=== PATIENT | female | born 1975 | race Caucasian/White ===

== ENCOUNTER → 2017-08-18 17:23 | Outpatient (CLI) | payer MEDICARE, MEDICAID, SELFPAY | PROVIDERS: Visit Provider Obstetrics & Gynecology | DX: N39.0 Urinary tract infection, site not specified (principal) | CPT/HCPCS: 87077; 87086; 87088; 87186 ==

== ENCOUNTER 2017-10-01 13:23 | Observation (INO) | payer MEDICARE, MEDICAID, SELFPAY ==
[2017-09-28 17:20] LABS: Hematocrit 39.8 % (37-47); Hemoglobin 12.8 g/dl (12.0-15.0); Mean Corp Hgb Conc 32.2 g/gl (32-36); Mean Corpuscular Hgb 28.6 pg (27.0-32.0); Mean Platelet Vol. 10.9 fl (6.2-12.0); Platelet Count 187 K/mm3 (150-450); RBC Distribution Width CV 13.7 % (11.6-14.6); RBC Distribution Width SD 44.7 fl (35.1-43.9); Red Blood Count 4.47 M/mm3 (4.2-5.4); White Blood Count 6.9 K/mm3 (4.4-11.0)
[2017-09-28 17:22] LABS: Scan Indicated on CBC? Y/N NO
[2017-09-28 17:31] LABS: Partial Thromboplast Time 28.6 Seconds (24.1-36.2); Prothrombin Time (Protime)PT. 13.6 SECONDS (11.7-14.9)
[2017-09-28 17:41] LABS: Anion Gap 6 (5-15); BUN 7 mg/dL (7-18); BUN/Creat Ratio 9.8 RATIO (10-20); Calcium,Total 8.9 mg/dL (8.5-10.1); Chloride 107 mmol/L (98-107); Creatinine, Serum 0.71 mg/dL (0.55-1.02); EST Glomerular Filtration Rate 96 mL/min (>60); Est Glom Filt Rate - Afr Amer 116 mL/min (>60); Glucose 80 mg/dL (74-106); Potassium 3.7 mmol/L (3.5-5.1); Sodium Level 140 mmol/L (136-145)
[2017-09-28 18:10] LABS: Hemoglobin A1c 4.7 % (4.2-6.3)
[2017-10-01] VITALS (50 sets, daily range): BP systolic 62–111; BP diastolic 28–80; PULSE 60–84; RESP 10–16; TEMP 35.5–37.1; O2SAT 93–100; BMI 19.0
--- NOTE | 2017-10-01 | HYST_PTH ---
PATIENT: CASTILLO BELLE LOC: MS3 U#:[id number] AGE/SX: 42/F ROOM: [facility] [place] RE10/01/[address]: Dr. Charline Pimentel MD : 1975 BED: 1 DIS: 10/02/2017 SPEC #: [id number] RECD: 10/01/17 12:04 STATUS: LISSA RECarline #: [id number] JUAN ALBERTO: 10/01/17 00:[address]: Charline Murphy DEPT: SURGICAL PATHOLOGY RECD BY: Mario So ENTERED: 10/01/17 12:04 SP TYPE: HYSTERECT OTHR DR: Dr. Bull Salamanca MD Tissues: Uterus, NOS Procedures: Special Stain Group II Surgery Specimen Level V Amyloid Stain (control) HEADER OPERATION: Hysterectomy, vaginal, salpingectomy PRE-OP DIAGNOSIS: Pelvic inflammatory disease and right lower quadrant tenderness TISSUE SUBMITTED: Uterus, bilateral fallopian tubes and cervix MICROSCOPIC DIAGNOSIS Uterus, hysterectomy: Cervix ? nabothian cysts, squamous metaplasia and mild chronic inflammation Endometrium ? secretory endometrium. Myometrium ? Focal superficial adenomyosis and benign hyalin deposits, favor reactive. Right and left fallopian tubes ? no pathologic change. AM:alexei 10/02/17 COMMENT [place] red stain supports the above diagnosis. Clinical correlation is suggested. MICROSCOPIC DESCRIPTION Slides are reviewed. GROSS DESCRIPTION Received in fixative is one container labeled with the patient's name and designated uterus. The specimen consists of a uterus with attached left fallopian tube and detached right fallopian tube. The uterus with cervix measures 8.6 x 5.5 x 5 cm and weighs 108.6 gm. The ectocervix is unremarkable. The cervical os is oval in contour. The endocervical canal measures 3 cm in length and is grossly unremarkable. The triangular endometrial cavity measures 4.2 x 3 cm. The velvety, glistening, light foreman endometrium measures up to 0.2 cm in thickness. Portions of an Essure device are present attached to the uterus and in the distal portions of the fallopian tubes. The right and left fallopian tube are similar in appearance with an average length of 6 cm and average diameter of 0.5 cm. Serial sections of both fallopian tubes do not reveal mass lesions. The myometrium measures 2.2 cm in average thickness and is free of mass lesions. Hearing Dog Trainer sections are submitted as follows: 1 - anterior cervix, 2 - posterior cervix, 3 & 4 - anterior uterine wall, 5 & 6 - posterior uterine wall, 7 ? right fallopian tube, 8 ? left fallopian tube. / AM:alexei 10/01/17 TC:5 CPT: 78189, 29243
[2017-10-01 06:23] LABS: Internal QC Validated? YES +Cl - CLEAR BKGD; Pregnancy, Urine Negative Negative
--- NOTE | 2017-10-01 07:30 | OV_PTH ---
PATIENT: CASTILLO BELLE LOC: MS3 U#:[id number] AGE/SX: 42/F ROOM: [facility] [place] RE10/01/[address]: Dr. Charline Pimentel MD : 1975 BED: 1 DIS: 10/02/2017 SPEC #: [id number] RECD: 10/02/17 09:49 STATUS: LISSA SABA #: [id number] JUAN ALBERTO: 10/01/17 07:[address]: Charline Murphy DEPT: SURGICAL PATHOLOGY RECD BY: Emery Porras ENTERED: 10/02/17 10:37 SP TYPE: OVARY OTHR DR: Dr. Bull Salamanca MD Tissues: Left ovary Procedures: Surgery Specimen Level IV HEADER OPERATION: Exploratory laparoscopy PRE-OP DIAGNOSIS: Chronic pelvic pain and failed Essure TISSUE SUBMITTED: Left ovary MICROSCOPIC DIAGNOSIS Left ovary, oophorectomy: Ovary with physiologic follicular cysts, no pathologic diagnosis. SJ:alexei 10/05/17 MICROSCOPIC DESCRIPTION Slides are reviewed. GROSS DESCRIPTION Received in fixative is one container labeled with the patient's name and designated left ovary. The specimen consists of a smooth, glistening pink-foreman ovary measuring 3.6 x 2 x 1 cm. Serial sections do not reveal mass lesions. Also present free in the container is an irregular fragment of light to dark foreman soft tissue measuring 1.3 x 0.5 x 0.2 cm. This detached fragment of soft tissue is submitted in cassette 1. The ovary section is totally submitted in cassettes 2-4. / AM:alexei 10/02/17 TC:4 CPT: 65358
[2017-10-01] MEDS: Ketorolac 30 MG/ML Syringe IV (09:15)
--- NOTE | 2017-10-01 09:17 | OP.PN_ITS ---
Immediate Post-Op Note Date of Procedure: 10/01/17 Primary Surgeon/Physician: Charline Campuzano, calender roll operator: Jasmin Causey calender roll operator: Patricia Pollock Pre-Operative Diagnosis: Chronic pelvic pain related to ESSURE device, failed ESSURE Post-Operative Diagnosis: Pelvic pain related ESSURE device, failed ESSURE Surgery/Procedure Performed:: Total vaginal hysterectomy, bilateral salpingectomy Description of Surgical Findings:: Essure coils within the uterine corpus. Tubes, ovaries and uterus normal appearing Estimated Blood Loss: 150 mL Specimen's removed: Uterus, cervix and bilateral tubes Type of Anesthesia:: General ASA Class: ASA1 Normal Healthy Patient - Admit VTE Documentation VTE Present on Admission: No VTE Mechan Device Prophylaxis: SCD's VTE Pharm Prophylaxis ordered?: No
--- NOTE | 2017-10-01 09:18 | PCM.OPRPT ---
Problem List (1) Chronic pelvic pain in female Status: Acute (2) Foreign body of uterus Status: Acute Qualifiers: Encounter type: subsequent encounter Qualified Code(s): T19.3XXD - Foreign body in uterus, subsequent encounter Report of Operation Date of Procedure: 10/01/17 Pre-Operative Diagnosis: Chronic pelvic pain related to ESSURE device, failed ESSURE Post-Operative Diagnosis: Pelvic pain related ESSURE device, failed ESSURE Surgery/Procedure Performed:: Total vaginal hysterectomy, bilateral salpingectomy Description of Surgical Findings:: Essure coils within the uterine corpus. Tubes, ovaries and uterus normal appearing sheet catcher: Jasmin Causey sheet catcher: Patricia Pollock Type of Anesthesia:: General Anesthesiologist: Matthew Zamora Specimen's removed: Uterus, cervix and bilateral tubes Estimated Blood Loss (mL): 150 mL Description of Procedure: Indications: Ms. Ferrer is a 42-year-old multigravida approximately 12 weeks following despite Essure placement in 2007. She indicated persistent lower abdominal pain with dyspareunia since placement of the coils. Following counseling she opted to proceed with total vaginal hysterectomy and bilateral salpingectomy. Risks, benefits, indications and alternatives were reviewed. Eater: The patient was taken to the operating room and signed and was performed. She is placed in the dorsal supine position and induced under general anesthesia and intubated. She was then repositioned to dorsolithotomy and examination under anesthesia was performed. The perineum and vagina were prepped and draped in sterile fashion. The Fair catheter was placed into the bladder. A weighted speculum placed into the vagina and the cervix grasped using single-tooth tenaculum. A circumferential incision was made using a scalpel along the cervix. The vesicle uterine space was developed using sharp dissection and the anterior cul-de-sac peritoneum identified and sharply entered. A curved Viri was placed into the space to further retract the bladder. In similar fashion the rectovaginal septum was dissected level of the uterosacral ligament to identify the posterior cul-de-sac peritoneum. This was entered sharply and a long weighted speculum was placed into the posterior cul-de-sac. The sacral ligaments were serially Chaim clamped, cut and suture ligated using 0 Vicryl suture. The cardinal ligaments, uterine vessels, uterine ovarian ligament also were subsequently clamped, cut and suture ligated. The right tube was identified to the level of the fimbria and the mesosalpinx clamped and transected. The pedicle was suture-ligated using 0 Vicryl. In similar fashion the left salpingectomy was performed. There is bleeding from the left pelvic peritoneum that was controlled using 0 Vicryl running lock suture to reapproximate the peritoneum step.. The modified Ragland culdoplasty was performed incorporating the uterosacral ligaments with the posterior and anterior peritoneum using 2-0 Prolene. Sohail was placed in the space. The vaginal cuff was reapproximated using 0 Vicryl figure of 8 sutures. There is excellent hemostasis. The patient was then placed into the dorsal supine position, awakened, extubated and transferred to the recovery room without complication. Sponge, instrument and needle counts were correct ?2. Patient tolerated procedure well. - Complications None - Admit VTE Documentation VTE Present on Admission: No VTE Mechan Device Prophylaxis: SCD's VTE Pharm Prophylaxis ordered?: No
--- NOTE | 2017-10-01 09:25 | OP.PCM_ITS ---
Problem List (1) Chronic pelvic pain in female Status: Acute (2) Foreign body of uterus Status: Acute Qualifiers: Encounter type: subsequent encounter Qualified Code(s): T19.3XXD - Foreign body in uterus, subsequent encounter Report of Operation Date of Procedure: 10/01/17 Pre-Operative Diagnosis: Chronic pelvic pain related to ESSURE device, failed ESSURE Post-Operative Diagnosis: Pelvic pain related ESSURE device, failed ESSURE Surgery/Procedure Performed:: Total vaginal hysterectomy, bilateral salpingectomy Description of Surgical Findings:: Essure coils within the uterine corpus. Tubes, ovaries and uterus normal appearing intake coordinator: Jasmin Causey intake coordinator: Patricia Pollock Type of Anesthesia:: General Anesthesiologist: Matthew Zamora Specimen's removed: Uterus, cervix and bilateral tubes Estimated Blood Loss (mL): 150 mL Description of Procedure: Indications: Ms. Ferrer is a 42-year-old multigravida approximately 12 weeks following despite Essure placement in 2007. She indicated persistent lower abdominal pain with dyspareunia since placement of the coils. Following counseling she opted to proceed with total vaginal hysterectomy and bilateral salpingectomy. Risks, benefits, indications and alternatives were reviewed. Eater: The patient was taken to the operating room and signed and was performed. She is placed in the dorsal supine position and induced under general anesthesia and intubated. She was then repositioned to dorsolithotomy and examination under anesthesia was performed. The perineum and vagina were prepped and draped in sterile fashion. The Fair catheter was placed into the bladder. A weighted speculum placed into the vagina and the cervix grasped using single-tooth tenaculum. A circumferential incision was made using a scalpel along the cervix. The vesicle uterine space was developed using sharp dissection and the anterior cul-de-sac peritoneum identified and sharply entered. A curved Viri was placed into the space to further retract the bladder. In similar fashion the rectovaginal septum was dissected level of the uterosacral ligament to identify the posterior cul-de-sac peritoneum. This was entered sharply and a long weighted speculum was placed into the posterior cul- de-sac. The sacral ligaments were serially Chaim clamped, cut and suture ligated using 0 Vicryl suture. The cardinal ligaments, uterine vessels, uterine ovarian ligament also were subsequently clamped, cut and suture ligated. The right tube was identified to the level of the fimbria and the mesosalpinx clamped and transected. The pedicle was suture-ligated using 0 Vicryl. In similar fashion the left salpingectomy was performed. There is bleeding from the left pelvic peritoneum that was controlled using 0 Vicryl running lock suture to reapproximate the peritoneum step.. The modified Ragland culdoplasty was performed incorporating the uterosacral ligaments with the posterior and anterior peritoneum using 2-0 Prolene. Sohail was placed in the space. The vaginal cuff was reapproximated using 0 Vicryl figure of 8 sutures. There is excellent hemostasis. The patient was then placed into the dorsal supine position, awakened, extubated and transferred to the recovery room without complication. Sponge, instrument and needle counts were correct ?2. Patient tolerated procedure well. - Complications None - Admit VTE Documentation VTE Present on Admission: No VTE Mechan Device Prophylaxis: SCD's VTE Pharm Prophylaxis ordered?: No
[2017-10-01] MEDS: Lactated Ringers 500 ML 999 ML IV ×2 (11:10→12:15)
--- NOTE | 2017-10-01 12:50 | PCM.PN.BLA ---
Progress Note Notified by RN patient with low BPs. I arrived to floor to evaluate the patient at approximately 1236h. Patient reports feeling lightheaded, cold and weak. Denies shortness of breath or palpitations. BPs 80s-90s/40s-50s at bedside. HR 90s bpm, R 12, O2 sat 97% on RA. RRR, CTAB, abdomen soft with appropriate post-operative tenderness, no distension, no rebound or guarding. Perineum inspected with scant blood. Nurse indicated this pad was present for 45 minutes and no expulsion of blood occurred on abdominal pressure. Awaiting CBC draw. I indicated to patient and her my concern for eric-operative bleed. I recommended CT a/P with IV contrast to r/o acute bleed given difficulty in drawing CBC, NPO and transfer to ICU for continuous vitals monitoring. Patient and spouse reported understanding. They were given opportunity to ask questions and questions answered to their satisfaction.
--- NOTE | 2017-10-01 12:54 | PN_ITS ---
Progress Note Notified by RN patient with low BPs. I arrived to floor to evaluate the patient at approximately 1236h. Patient reports feeling lightheaded, cold and weak. Denies shortness of breath or palpitations. BPs 80s-90s/40s-50s at bedside. HR 90s bpm, R 12, O2 sat 97% on RA. RRR, CTAB, abdomen soft with appropriate post- operative tenderness, no distension, no rebound or guarding. Perineum inspected with scant blood. Nurse indicated this pad was present for 45 minutes and no expulsion of blood occurred on abdominal pressure. Awaiting CBC draw. I indicated to patient and her my concern for eric-operative bleed. I recommended CT a/P with IV contrast to r/o acute bleed given difficulty in drawing CBC, NPO and transfer to ICU for continuous vitals monitoring. Patient and spouse reported understanding. They were given opportunity to ask questions and questions answered to their satisfaction.
--- NOTE | 2017-10-01 12:54 | CT_ITS ---
STUDY: CT ABDOMEN AND PELVIS WITH CONTRAST REASON FOR EXAM: Female, 42 years old. Rectal bleeding and retroperitoneal bleed. Status post DANNIELLE/BSO today. RADIATION DOSAGE (If Supplied By Facility): CTDIvol = ( 12.44 ) mGy, DLP = ( 599.38 ) mGycm TECHNIQUE: Transaxial images were obtained from the dome of the diaphragm to the symphysis pubis without oral contrast. 100ml ml of Isovue 300 contrast was administered. Sagittal and coronal images were reconstructed. Individualized dose optimization techniques were used for this CT. COMPARISON: None. FINDINGS: The visualized lung bases are unremarkable. The visualized portions of the heart are within normal limits. Normal liver. Normal gallbladder and extrahepatic biliary system. Normal spleen. Normal pancreas. There is a moderate to large quantity of mildly hyperdense free fluid throughout the abdomen and pelvis. Hounsfield attenuation units average from 24-28. A few scattered foci of free air are seen in the operative bed seen best on sequence 2 image numbers 100 through 96. The fluid within the pelvic surgical bed site demonstrates amorphous high attenuation measuring approximately 63 Hounsfield units (best seen best on sequence 2, image 99.) Multiple linear and curvilinear high density foci are seen centrally in the perioperative site seen best on sequence 2, image 98. These findings argue for active extravasation. Normal bilateral adrenal glands. Normal right kidney. Normal left kidney. Normal visualized stomach. Normal small intestine. Normal colon. The appendix is visualized and appears normal. Normal abdominal aorta. Normal inferior vena cava. Normal retroperitoneum. There is a Fair catheter and balloon within the decompressed urinary bladder which otherwise appears grossly unremarkable. Normal abdominal wall. Normal osseous structures. CT/Abdomen/Pelvis W IV Cont ONLY IMPRESSION: Findings consistent with active extravasation at the operative site within the pelvis with hemoperitoneum. N.B. : The above information has been verbally conveyed by Aneudy Fields MD to , Referring Physician, on 10/01/2017 15:05:42 (ET). Electronically Signed: Aneudy Fields MD at 15:05 EDT , Service support , N.B. : The above information has been verbally conveyed by Aneudy Fields MD to , Referring Physician, on 10/01/2017 15:05:42 (ET).
[2017-10-01] MEDS: Dextrose 5%-Lactated Ringers 1,000 ML 200 ML IV (13:04)
--- NOTE | 2017-10-01 13:07 | NURSING ---
nursing and drying supervisor cooking casing aware of pt status and md wants pt to go to ct prior to going to icu. states she will get a hold of ICU nurse and have her accompany pt to ct and then to icu
[2017-10-01 13:16] LABS: Hematocrit 30.8 % (37-47); Hemoglobin 10.1 g/dl (12.0-15.0); Mean Corp Hgb Conc 32.8 g/gl (32-36); Mean Corpuscular Hgb 29.5 pg (27.0-32.0); Mean Corpuscular Volume 90.1 fL (81-99); RBC Distribution Width CV 13.6 % (11.6-14.6); RBC Distribution Width SD 43.4 fl (35.1-43.9); Red Blood Count 3.42 M/mm3 (4.2-5.4); White Blood Count 12.3 K/mm3 (4.4-11.0)
[2017-10-01 13:17] LABS: Absolute Lymphocyte Count 0.67 X10^3/ul (0.83-4.51); Absolute Neutrophil Count 11.4 X10^3/uL (2.0-7.7); Lymphocyte # 0.67 X10^3/ul (4.0); Lymphocyte % 5.4 % (19-41); Mean Platelet Vol. 10.9 fl (6.2-12.0); Monocyte# 0.21 X10^3/uL; Monocyte% 1.7 % (0-10); Neutrophil # 11.41 X10^3/uL (2.7-7.7); Neutrophil % 92.7 % (47-70); Platelet Count 152 K/mm3 (150-450)
--- NOTE | 2017-10-01 13:35 | NURSING ---
[address] per monitored bed x2 staff nurses. report to MARA ROSE IN ICU AT BEDSIDE OF CT.
--- NOTE | 2017-10-01 15:44 | NURSING ---
to or per bed per surgery, pt talked with triston per phone, ist unit prbc infusing
[2017-10-01 16:54] LABS: M R Staph aureus DNA By PCR Negative (Negative); Probe Check PASS; Specimen Processing Control PASS
--- NOTE | 2017-10-01 18:00 | PCM.IMDPSTOP ---
Problem List (1) Acute blood loss as cause of postoperative anemia Status: Acute Immediate Post-Op Note Date of Procedure: 10/01/17 Primary Surgeon/Physician: Charline Campuzano, coke burner: Jasmin Causey coke burner: Patricia Plolock Pre-Operative Diagnosis: Perioperative hemorrhage Post-Operative Diagnosis: Perioperative hemorrhage Surgery/Procedure Performed:: Diagnostic laparoscopy, left oophorectomy Description of Surgical Findings:: Bleeding from left adnexal pedicle Estimated Blood Loss: 1500ml Specimen's removed: left ovary Drains: marin 450 ml Type of Anesthesia:: General - Admit VTE Documentation VTE Present on Admission: No VTE Mechan Device Prophylaxis: SCD's
--- NOTE | 2017-10-01 18:10 | OP.PN_ITS ---
Problem List (1) Acute blood loss as cause of postoperative anemia Status: Acute Immediate Post-Op Note Date of Procedure: 10/01/17 Primary Surgeon/Physician: Charline Campuzano, it administrator: Jasmin Causey it administrator: Patricia Pollock Pre-Operative Diagnosis: Perioperative hemorrhage Post-Operative Diagnosis: Perioperative hemorrhage Surgery/Procedure Performed:: Diagnostic laparoscopy, left oophorectomy Description of Surgical Findings:: Bleeding from left adnexal pedicle Estimated Blood Loss: 1500ml Specimen's removed: left ovary Drains: marin 450 ml Type of Anesthesia:: General - Admit VTE Documentation VTE Present on Admission: No VTE Mechan Device Prophylaxis: SCD's
[2017-10-01 19:18] LABS: Absolute Lymphocyte Count 0.67 X10^3/ul (0.83-4.51); Absolute Neutrophil Count 9.2 X10^3/uL (2.0-7.7); Basophil# 0.01 X10^3/uL; Basophil% 0.1 % (0-1); Lymphocyte # 0.67 X10^3/ul (4.0); Lymphocyte % 6.4 % (19-41); Mean Corp Hgb Conc 33.3 g/gl (32-36); Mean Corpuscular Hgb 29.1 pg (27.0-32.0); Mean Corpuscular Volume 87.3 fL (81-99); Mean Platelet Vol. 11.5 fl (6.2-12.0); Monocyte# 0.59 X10^3/uL; Monocyte% 5.7 % (0-10); Neutrophil # 9.16 X10^3/uL (2.7-7.7); Neutrophil % 87.7 % (47-70); Platelet Count 117 K/mm3 (150-450); RBC Distribution Width CV 14.1 % (11.6-14.6); RBC Distribution Width SD 44.7 fl (35.1-43.9); Red Blood Count 3.78 M/mm3 (4.2-5.4); White Blood Count 10.4 K/mm3 (4.4-11.0)
[2017-10-01 19:19] LABS: POSITIVE COUNT NO; POSITIVE DIFFERENTIAL NO; POSITIVE MORPHOLOGY NO
[2017-10-01 19:43] LABS: International Normalized Ratio 1.1; Prothrombin Time (Protime)PT. 14.1 SECONDS (11.7-14.9)
[2017-10-01] MEDS: Dextrose 5%-Lactated Ringers 1,000 ML 150 ML IV ×2 (19:55→21:28)
--- NOTE | 2017-10-01 21:13 | OP.PCM_ITS ---
Problem List (1) Acute blood loss as cause of postoperative anemia Status: Acute Report of Operation Date of Procedure: 10/01/17 Pre-Operative Diagnosis: Perioperative hemorrhage Post-Operative Diagnosis: Perioperative hemorrhage Surgery/Procedure Performed:: Diagnostic laparoscopy, left oophorectomy Description of Surgical Findings:: Bleeding from left adnexal pedicle graphite disk assembler: Jasmin Causey Type of Anesthesia:: General Anesthesiologist: Teri Rich Specimen's removed: left ovary Drains: marin 450 ml Estimated Blood Loss (mL): 1500ml Fluids Replaced: 2000 ml Description of Procedure: Indications: Courtney is a 42-year-old 3 para 3003 immediately postop status post total vaginal hysterectomy with bilateral salpingectomy for displaced Esher coils with failure and chronic pelvic pain. Approximately 2 hours following her surgery she began to have low blood pressures and symptoms of anemia. A CT of the abdomen and pelvis was obtained demonstrating extravasation of blood in the pelvis. I advised her of the need to return to the OR to identify the source of the bleed and treat that appropriately. She was transfused 1 unit of packed RBCs preoperatively. I advised her to proceed with diagnostic laparoscopy and possible expiratory laparotomy as indicated. Risks, benefits, indications of procedure were reviewed as well as alternatives. Patient agreed to proceed. Consents were signed. Procedure: The patient was taken to the operating room and placed in the dorsal supine position and induced under general anesthesia and intubated. She was then repositioned into dorsal lithotomy. The abdomen and perineum were prepped and draped in sterile fashion. A sponge stick was placed into the vagina. A Marin catheter was already in situ. The inferior umbilicus was incised using scalpel. Veress needle was placed with successful hanging drop test and no aspirate. The abdomen was insufflated to 15 mmHg. The Veress needle was removed and a 5 mm port was placed under laparoscopic guidance. 2 additional 5 mm ports were placed in the right and left lower quadrants following an incision placement. A 12 mm port was placed at the suprapubic site after incision was made. The patient was placed into Trendelenburg. There were blood clots and abundant amount of blood in the pelvis. The clots were suctioned to allow further visualization of the deep pelvis. With removal of clots I could see that there was active bleeding from the left adnexal pedicle. The bleeding was unable to be controlled using the Enseal device and was occurring from the base of the ovary was made the decision to proceed with oophorectomy. The infundibular pelvic ligament was clamped coagulated and cut and oophorectomy performed. There was significant improvement of bleeding at that time. Additional small arterial bleed was also identified just inferior to the vaginal cuff which was controlled with electrocoagulation. The patient was placed into reverse Trendelenburg and further blood clots were evacuated. Patient was then placed into Trendelenburg again and there was no evidence of active bleeding. The abdominal insufflation pressure was decreased to 12 and then 8 mmHg with still no evidence of any additional bleeding. Sohail was placed for continued hemostasis along the cuff and the left adnexal pedicle. The right pedicles were hemostatic. The procedure was complete. The abdomen was desufflated and the ports were removed from the abdomen. The fascia of the suprapubic incision was closed using 0 Vicryl. The skin at the various incisions were closed using 4-0 Monocryl by the PRINTED CIRCUIT BOARDS LAMINATOR under my supervision. Steri-Strips followed by OpSite dressing were placed over the incisions. The sponge stick was removed from the vagina. The patient was then placed into dorsal supine position, awakened, extubated and transferred to the recovery room without further complication. Total amount of blood clots and blood loss during the procedure was approximately 1500 mL the majority of which were blood clots. Sponge, instrument and needle counts were correct. - Complications none - Admit VTE Documentation VTE Present on Admission: No VTE Mechan Device Prophylaxis: SCD's VTE Pharm Prophylaxis ordered?: No
--- NOTE | 2017-10-01 22:21 | PCM.PN.OB ---
Patient Problems: Active and Suspected Problems Chronic pelvic pain in female (Acute) Foreign body of uterus (Acute) Acute blood loss as cause of postoperative anemia (Acute) Subjective: Pain 5/10, she is sore. She also relates swelling in her hands and mild itching. Denies shortness of breath or sensation of bulge or swelling in throat. Tolerates ice chips. No flatus yet. Denies lightheadedness. Objective: avss - Physical Exam General: Alert, Oriented x3, Cooperative, No apparent distress HEENT: Atraumatic, Normocephalic, - - Facial edema Abdomen: Soft, Non Tender, Non-Distended, - - Perineal pad with scant blood Extremities: No Calf Tenderness Psych/Mental Status: Normal Affect, Appropriate, Alert and oriented to time, place, person, mood and affect Vital Signs Temp Pulse Resp BP Pulse Ox 98.4 F 80 16 104/55 L 96 10/01/17 21:20 10/01/17 21:20 10/01/17 21:20 10/01/17 21:20 10/01/17 21:20 Oxygen Flow Rate (L/min) 2 Oxygen Delivery Method Room Air Weight: 56.8 kg Body Mass Index (BMI) 19.0 Intake and Output for Last 24 Hours 09/29/17 09/30/17 10/01/17 23:59 23:59 23:59 Intake Total 5100 / 5100 Output Total 575 / 575 Balance 4525 / 4525 Laboratory Tests Past 24 Hrs 10/01/17 10/01/17 13:03 Unknown WBC 12.3 H RBC 3.42 L Hgb 10.1 L Hct 30.8 L MCV 90.1 MCH 29.5 MCHC 32.8 RDW 13.6 RDW Differential 43.4 Plt Count 152 MPV 10.9 Immature Gran % (Auto) 0.200 Neut % (Auto) 92.7 H Lymph % (Auto) 5.4 L [place] % (Auto) 1.7 Eos % (Auto) 0.0 Baso % (Auto) 0.0 Absolute Neuts (auto) 11.4 H Absolute Lymphs (auto) 0.67 L Total Counted Not Reportable Urine Test Negative Medical Necessity - Tobacco Use Smoking Status: Former smoker Assessment/Plan Active and Suspected Problems Chronic pelvic pain in female (Acute) Foreign body of uterus (Acute) Acute blood loss as cause of postoperative anemia (Acute) 42yo s/p TVH, BS complicated by acute postoperative bleed requiring diagnostic laparoscopy, 2U PRBC - hemodynamically stable. -Facial edema - medications reviewed, etiology unclear - will avoid all medications given this afternoon. Benadryl. -Advance to CLD -Pain management - Hydrocodone/APAP PO -UO adequate -Anemia - cbc now and repeat in am.
[2017-10-01] MEDS: DiphenhydrAMINE 50 MG/ML Syringe 25 MG IV (23:35)
[2017-10-01] MEDS: 0.9% NaCl Peripheral Flush Adult/Peds IV (23:36)
[2017-10-01 23:42] LABS: Absolute Neutrophil Count 6.5 X10^3/uL (2.0-7.7); Basophil# 0.01 X10^3/uL; Basophil% 0.1 % (0-1); Hematocrit 27.8 % (37-47); Hemoglobin 9.4 g/dl (12.0-15.0); Lymphocyte % 16.4 % (19-41); Mean Corp Hgb Conc 33.8 g/gl (32-36); Mean Corpuscular Hgb 29.9 pg (27.0-32.0); Mean Corpuscular Volume 88.5 fL (81-99); Mean Platelet Vol. 11.1 fl (6.2-12.0); Monocyte% 12.1 % (0-10); Neutrophil % 71.3 % (47-70); Platelet Count 123 K/mm3 (150-450); RBC Distribution Width CV 13.9 % (11.6-14.6); Red Blood Count 3.14 M/mm3 (4.2-5.4); White Blood Count 9.1 K/mm3 (4.4-11.0)
[2017-10-01 23:48] LABS: POSITIVE COUNT NO; POSITIVE DIFFERENTIAL NO; POSITIVE MORPHOLOGY NO
[2017-10-02] VITALS (8 sets, daily range): BP systolic 94–116; BP diastolic 40–63; PULSE 78–91; RESP 14–20; TEMP 36.4–36.9; O2SAT 97–99
[2017-10-02] MEDS: Dextrose 5%-Lactated Ringers 1,000 ML 150 ML IV (01:33)
[2017-10-02] MEDS: 0.9% NaCl Peripheral Flush Adult/Peds IV (01:33)
[2017-10-02 06:13] LABS: Absolute Lymphocyte Count 1.89 X10^3/ul (0.83-4.51); Absolute Neutrophil Count 4.9 X10^3/uL (2.0-7.7); Basophil# 0.01 X10^3/uL; Basophil% 0.1 % (0-1); Eosinophil# 0.01 X10^3/uL; Eosinophils% 0.1 % (0-5); Hematocrit 26.1 % (37-47); Hemoglobin 8.6 g/dl (12.0-15.0); Lymphocyte # 1.89 X10^3/ul (4.0); Lymphocyte % 24.3 % (19-41); Mean Corpuscular Volume 87.9 fL (81-99); Mean Platelet Vol. 10.9 fl (6.2-12.0); Monocyte# 0.93 X10^3/uL; Neutrophil # 4.92 X10^3/uL (2.7-7.7); Neutrophil % 63.4 % (47-70); Platelet Count 125 K/mm3 (150-450); RBC Distribution Width CV 14.4 % (11.6-14.6); Red Blood Count 2.97 M/mm3 (4.2-5.4); White Blood Count 7.8 K/mm3 (4.4-11.0)
[2017-10-02 06:20] LABS: POSITIVE COUNT NO; POSITIVE DIFFERENTIAL NO; POSITIVE MORPHOLOGY NO
[2017-10-02] MEDS: HYDROcodone Bitartrate/Apap 5/325 Tablet PO ×2 (06:41→12:43)
--- NOTE | 2017-10-02 08:42 | NURSING ---
Sitting in chair. Dr. Campuzano in to see pt recently. This nurse assisted pt in walking in [place], felt weak and walked slow but walked from chair to the door of 305 and then to the bathroom. Pt wanted to see if she could void, only voided a drop of watery/pink drainage. When this nurse asked if she felt like she had to urinate, she stated she did but now she putnam not. this nurse will monitor. ASsisted back to chair, ordering breakfast.
--- NOTE | 2017-10-02 08:44 | PN.OBGYN_ITS ---
Patient Problems: Active and Suspected Problems Chronic pelvic pain in female (Acute) Foreign body of uterus (Acute) Acute blood loss as cause of postoperative anemia (Acute) Subjective: Pain controlled with medication. Passing flatus. Denies nausea or vomiting. She tolerates a clear liquid diet without nausea or vomiting. She is out of bed to chair. Catheter removed this morning, she has not voided yet. Objective: AVSS - Physical Exam General: Alert, Oriented x3, Cooperative, No apparent distress HEENT: Atraumatic, Normocephalic Lungs: Clear to auscultation, Normal air movement Cardiovascular: Regular rate, Regular Rhythm, Normal S1, Normal S2 Abdomen: Bowel Sounds Present, Soft, Non Tender, Non-Distended, - - Incisional dressings c/d/i, perineal pad with no blood Extremities: No edema, No Calf Tenderness Neurological: Neuro grossly intact Psych/Mental Status: Normal Affect, Appropriate, Alert and oriented to time, place, person, mood and affect Vital Signs Temp Pulse Resp BP Pulse Ox 97.7 F L 91 20 H 104/61 98 10/02/17 08:15 10/02/17 08:15 10/02/17 08:15 10/02/17 08:15 10/02/17 08:15 Oxygen Flow Rate (L/min) 2 Oxygen Delivery Method Room Air Weight: 56.8 kg Body Mass Index (BMI) 19.0 Intake and Output for Last 24 Hours 09/30/17 10/01/17 10/02/17 23:59 23:59 23:59 Intake Total 5406 / 5406 1425 / 1425 Output Total 875 / 875 900 / 900 Balance 4531 / 4531 525 / 525 Laboratory Tests Past 24 Hrs 10/01/17 13:03 WBC 12.3 H RBC 3.42 L Hgb 10.1 L Hct 30.8 L MCV 90.1 MCH 29.5 MCHC 32.8 RDW 13.6 RDW Differential 43.4 Plt Count 152 MPV 10.9 Immature Gran % (Auto) 0.200 Neut % (Auto) 92.7 H Lymph % (Auto) 5.4 L [place] % (Auto) 1.7 Eos % (Auto) 0.0 Baso % (Auto) 0.0 Absolute Neuts (auto) 11.4 H Absolute Lymphs (auto) 0.67 L Total Counted Not Reportable Medical Necessity - Tobacco Use Smoking Status: Former smoker Assessment/Plan Active and Suspected Problems Chronic pelvic pain in female (Acute) Foreign body of uterus (Acute) Acute blood loss as cause of postoperative anemia (Acute) 42yo POD#1 s/p TVH, BS complicated by acute postoperative bleed requiring diagnostic laparoscopy, 2U PRBC - hemodynamically stable. -Facial edema - stable -Advance to regular diet -Pain management prn -UO adequate -Anemia - Hgb 8.6 per lab call, f/u rest of CBC
--- NOTE | 2017-10-02 09:51 | NURSING ---
Early this morning around 0830am, Dr. Jonny Pimentel asked for CBC results that were ordered. The results said CBC was completed but there were no results in the computer. This nurse called lab, they could see the results on their side so they faxed a copy to 3rd floor and this nurse hand delivered the CBC results to Dr. Jonny Pimentel. She looked through the lab results here on 3rd floor.
--- NOTE | 2017-10-02 10:26 | NURSING ---
Pt up to void, voided 100ml and then again 125ml with some incontinence of urine on the floor. This nurse bladder scanned PVR and measured 0ml in bladder.
--- NOTE | 2017-10-02 12:49 | NURSING ---
BP obtained, 94/59 Hr 78. Pt does feel dizzy only when up. currently laying in bed. Will recheck VS in 2hrs. SBP is not below 20% of pre-op BP
--- NOTE | 2017-10-02 15:37 | NURSING ---
This nurse aware of VS taken by [facility] nursing sturdent.
--- NOTE | 2017-10-02 18:54 | PCM.DC.VHY ---
Discharge Diet: No Restrictions Discharge Activity: Return to Normal Activity, May Not Drive, May not drive while taking narcotic pain medications., May Shower May resume sexual activity in: 6 weeks Lifting Restrictions: 10 lb Call your doctor if your incision/area has: Continuous Slow Oozing, Sudden Increased Bleeding, Increased Pain/ Swelling, Increased Redness, Foul Smelling Discharge Call your doctor if you observe: Fever of 101 or Higher, Inability to urinate, Inability to have a bowel movement, Using more than one pad per hour, Shortness of breath, Chest pain, Calf discomfort, Uncontrolled pain Suture Line Care: Avoid Pulling/Pushing Remove Dressing in (days):: 1 - remove on Thursday10/03/17 Cleanse incision/area with: Soap & Water Allergies/Adverse Reactions: Allergies acetaminophen [From Percocet] Adverse Reaction (Verified 09/24/17 09:28) Nausea oxycodone [From Percocet] Adverse Reaction (Verified 09/24/17 09:28) Nausea propoxyphene [From Darvocet-N] Adverse Reaction (Verified 09/24/17 09:28) Nausea Medications to take at Discharge Albuterol Inhaler [Ventolin Hfa] 2 puff INHALATION Q4H PRN PRN 06/25/17 Fluticasone/Salmeterol [Advair 250/50 Mcg Diskus] 250 mcg INHALATION BID 06/25/17 Montelukast [Singulair] 10 mg PO DAILY 06/25/17 Docusate Sodium [Colace] 100 mg PO BID PRN PRN #60 cap 10/02/17 Hydrocodone Bitart/Apap 5-325 [[place] 5/325] 1 - 2 tablet PO Q4H PRN PRN 3 Days #28 tablet 10/02/17 Ibuprofen 800 mg PO TID #30 tab 10/02/17 The following prescriptions were given: Hydrocodone Bitart/Apap 5-325 [[place] 5/325] 1 - 2 tablet PO Q4H PRN PRN 3 Days #28 tablet PRN Reason: Mod-Severe Pain (4-03/17) Docusate Sodium [Colace] 100 mg PO BID PRN PRN #60 cap PRN Reason: Constipation Ibuprofen 800 mg PO TID #30 tab Primary Care Physician: Bull Salamanca MD [Primary Care Provider] - Please Follow Up With: Charline Campuzano MD When: 5-7 days
--- NOTE | 2017-10-02 18:56 | NURSING ---
This nurse called and spoke with Dr. Jonny Pimentel around 1830. She is aware of orthostatic VS and that ABd is more rounded then this morning, tender, BS hypo and no flatus yet. Also aware that pt is weak but no longer c/o dizzyness when she is up and poor appetite. Dr. Jonny Pimentel feels comfortable sending pt home.
--- NOTE | 2017-10-02 18:57 | DCINST_ITS ---
Discharge Diet: No Restrictions Discharge Activity: Return to Normal Activity, May Not Drive, May not drive while taking narcotic pain medications., May Shower May resume sexual activity in: 6 weeks Lifting Restrictions: 10 lb Call your doctor if your incision/area has: Continuous Slow Oozing, Sudden Increased Bleeding, Increased Pain/ Swelling, Increased Redness, Foul Smelling Discharge Call your doctor if you observe: Fever of 101 or Higher, Inability to urinate, Inability to have a bowel movement, Using more than one pad per hour, Shortness of breath, Chest pain, Calf discomfort, Uncontrolled pain Suture Line Care: Avoid Pulling/Pushing Remove Dressing in (days):: 1 - remove on Thursday10/03/17 Cleanse incision/area with: Soap & Water Allergies/Adverse Reactions: Allergies acetaminophen [From Percocet] Adverse Reaction (Verified 09/24/17 09:28) Nausea oxycodone [From Percocet] Adverse Reaction (Verified 09/24/17 09:28) Nausea propoxyphene [From Darvocet-N] Adverse Reaction (Verified 09/24/17 09:28) Nausea Medications to take at Discharge Albuterol Inhaler [Ventolin Hfa] 2 puff INHALATION Q4H PRN PRN 06/25/17 Fluticasone/Salmeterol [Advair 250/50 Mcg Diskus] 250 mcg INHALATION BID Montelukast [Singulair] 10 mg PO DAILY 06/25/17 Docusate Sodium [Colace] 100 mg PO BID PRN PRN #60 cap 10/02/17 Hydrocodone Bitart/Apap 5-325 [[place] 5/325] 1 - 2 tablet PO Q4H PRN PRN 3 Days # 28 tablet 10/02/17 Ibuprofen 800 mg PO TID #30 tab 10/02/17 The following prescriptions were given: Hydrocodone Bitart/Apap 5-325 [[place] 5/325] 1 - 2 tablet PO Q4H PRN PRN 3 Days # 28 tablet PRN Reason: Mod-Severe Pain (4-03/17) Docusate Sodium [Colace] 100 mg PO BID PRN PRN #60 cap PRN Reason: Constipation Ibuprofen 800 mg PO TID #30 tab Primary Care Physician: Bull Salamanca MD [Primary Care Provider] - Please Follow Up With: Charline Campuzano MD When: 5-7 days
--- NOTE | 2017-10-02 19:55 | NURSING ---
After getting into the wheelchair had emesis States I feel better. Reminded her to walk around the house about every hour do not just go home and lie on the couch. Drink clears, use IS. call her DrBrigida if she has any issues. Reminded her to watch her urine output and do not get constipated with taking her pain meds.
--- NOTE | 2017-10-10 01:06 | PCM.DC.SUM ---
Discharge Date and Diagnosis Date of Admission: 10/01/17 Date of Discharge: 10/02/17 Hospital Course and Treatment Operations: - - Total vaginal hysterectomy Diagnostic laparoscopy Procedures: Blood transfusion Summary of Care Provided: The patient is a 42 year old F with history of chronic pelvic pain related to Essure device and history of Essure failure who presents approximately 14 weeks for scheduled hysterectomy. She underwent an uncomplicated total vaginal hysterectomy with bilateral salpingectomy. In the immediate post-operative period she had symptomatic hypotension. A CT A/P demonstrated an acute pelvic bleed. She was given 2 U packed red blood cells with improvement of hemodynamic stability and returned to the OR. Diagnostic laparoscopy was performed with evacuation of hemoperitoneum and the origin of bleeding was identified and treated. Courtney did well post-operatively. She reported fatigue, but was out of bed, ambulating and voiding without difficulty. Her pain was controlled. Her Hgb was stable. She was discharged to home on post-operative day #1. Discharge Diet: No Restrictions Discharge Activity: Return to Normal Activity, May Not Drive, May not drive while taking narcotic pain medications., May Shower May resume sexual activity in: 6 weeks Call your doctor if your incision/area has: Continuous Slow Oozing, Sudden Increased Bleeding, Increased Pain/ Swelling, Increased Redness, Foul Smelling Discharge Call your doctor if you observe: Fever of 101 or Higher, Inability to urinate, Inability to have a bowel movement, Using more than one pad per hour, Shortness of breath, Chest pain, Calf discomfort, Uncontrolled pain Suture Line Care: Avoid Pulling/Pushing Remove Dressing in (days):: 1 - remove on Thursday10/03/17 Cleanse incision/area with: Soap & Water Home Medications: Medications to take at Discharge Albuterol Inhaler [Ventolin Hfa] 2 puff INHALATION Q4H PRN PRN 06/25/17 Fluticasone/Salmeterol [Advair 250/50 Mcg Diskus] 250 mcg INHALATION BID 06/25/17 Montelukast [Singulair] 10 mg PO DAILY 06/25/17 Docusate Sodium [Colace] 100 mg PO BID PRN PRN #60 cap 10/02/17 Hydrocodone Bitart/Apap 5-325 [[place] 5/325] 1 - 2 tablet PO Q4H PRN PRN 3 Days #28 tablet 10/02/17 Ibuprofen 800 mg PO TID #30 tab 10/02/17 Following Prescrptions Were Given to Patient: Hydrocodone Bitart/Apap 5-325 [[place] 5/325] 1 - 2 tablet PO Q4H PRN PRN 3 Days #28 tablet PRN Reason: Mod-Severe Pain (-03/17) Docusate Sodium [Colace] 100 mg PO BID PRN PRN #60 cap PRN Reason: Constipation Ibuprofen 800 mg PO TID #30 tab Primary Care Physician: Bull Salamanca MD [Primary Care Provider] - Please Follow Up With: Charline Campuzano MD When: 5-7 days Medical Necessity - Tobacco Use Smoking Status: Former smoker Meaningful Use Info Meaningful Use Diagnoses (Choose all that apply): None applicable
--- NOTE | 2017-10-10 01:14 | DS.PCM_ITS ---
Discharge Date and Diagnosis Date of Admission: 10/01/17 Date of Discharge: 10/02/17 Hospital Course and Treatment Operations: - - Total vaginal hysterectomy Diagnostic laparoscopy Procedures: Blood transfusion Summary of Care Provided: The patient is a 42 year old F with history of chronic pelvic pain related to Essure device and history of Essure failure who presents approximately 14 weeks for scheduled hysterectomy. She underwent an uncomplicated total vaginal hysterectomy with bilateral salpingectomy. In the immediate post- operative period she had symptomatic hypotension. A CT A/P demonstrated an acute pelvic bleed. She was given 2 U packed red blood cells with improvement of hemodynamic stability and returned to the OR. Diagnostic laparoscopy was performed with evacuation of hemoperitoneum and the origin of bleeding was identified and treated. Courtney did well post-operatively. She reported fatigue , but was out of bed, ambulating and voiding without difficulty. Her pain was controlled. Her Hgb was stable. She was discharged to home on post-operative day #1. Discharge Diet: No Restrictions Discharge Activity: Return to Normal Activity, May Not Drive, May not drive while taking narcotic pain medications., May Shower May resume sexual activity in: 6 weeks Call your doctor if your incision/area has: Continuous Slow Oozing, Sudden Increased Bleeding, Increased Pain/ Swelling, Increased Redness, Foul Smelling Discharge Call your doctor if you observe: Fever of 101 or Higher, Inability to urinate, Inability to have a bowel movement, Using more than one pad per hour, Shortness of breath, Chest pain, Calf discomfort, Uncontrolled pain Suture Line Care: Avoid Pulling/Pushing Remove Dressing in (days):: 1 - remove on Thursday10/03/17 Cleanse incision/area with: Soap & Water Home Medications: Medications to take at Discharge Albuterol Inhaler [Ventolin Hfa] 2 puff INHALATION Q4H PRN PRN 06/25/17 Fluticasone/Salmeterol [Advair 250/50 Mcg Diskus] 250 mcg INHALATION BID Montelukast [Singulair] 10 mg PO DAILY 06/25/17 Docusate Sodium [Colace] 100 mg PO BID PRN PRN #60 cap 10/02/17 Hydrocodone Bitart/Apap 5-325 [[place] 5/325] 1 - 2 tablet PO Q4H PRN PRN 3 Days # 28 tablet 10/02/17 Ibuprofen 800 mg PO TID #30 tab 10/02/17 Following Prescrptions Were Given to Patient: Hydrocodone Bitart/Apap 5-325 [[place] 5/325] 1 - 2 tablet PO Q4H PRN PRN 3 Days # 28 tablet PRN Reason: Mod-Severe Pain (-03/17) Docusate Sodium [Colace] 100 mg PO BID PRN PRN #60 cap PRN Reason: Constipation Ibuprofen 800 mg PO TID #30 tab Primary Care Physician: Bull Salamanca MD [Primary Care Provider] - Please Follow Up With: Charline Campuzano MD When: 5-7 days Medical Necessity - Tobacco Use Smoking Status: Former smoker Meaningful Use Info Meaningful Use Diagnoses (Choose all that apply): None applicable
== END 2017-10-02 19:58 | disposition home or self-care (01) ==
LOC: ICU 15:02 → MS3 10-02 03:04 → MS2 10-02 07:29 → SDC 10-02 07:38 → ICU 10-02 07:38 → MS3 10-02 07:39
PROVIDERS: Admitting Provider Obstetrics & Gynecology; Family Provider Internal Medicine; PCP Internal Medicine; Visit Provider Obstetrics & Gynecology
PROC: (CPT 58260; principal; 2017-10-01 07:10)
DX: N73.9 Female pelvic inflammatory disease, unspecified (principal); N80.0 Endometriosis of uterus; N88.8 Other specified noninflammatory disorders of cervix uteri; T19.3XXD Foreign body in uterus, subsequent encounter; G89.29 Other chronic pain; D62 Acute posthemorrhagic anemia; T83.84XA Pain due to genitourinary prosthetic devices, implants and grafts, initial encounter; Y76.8 Miscellaneous obstetric and gynecological devices associated with adverse incidents, not elsewhere classified; Z87.891 Personal history of nicotine dependence; N99.820 Postprocedural hemorrhage of a genitourinary system organ or structure following a genitourinary system procedure; Y83.6 Removal of other organ (partial) (total) as the cause of abnormal reaction of the patient, or of later complication, without mention of misadventure at the time of the procedure; Y92.238 Other place in hospital as the place of occurrence of the external cause; J45.909 Unspecified asthma, uncomplicated; M19.90 Unspecified osteoarthritis, unspecified site
CPT/HCPCS: 00840; 00940; 58262; 58661; 36415; 36430; 74177; 80048; 81025; 83036; 85025; 85027; 85610; 85730; 86850; 86900; 86920; 87641; 88305; 88307; 88313; 96361; 96374; 96375; 97802; 99218; J7040; J7120; P9016; Q9967; A4216; C1760; G0378; G0379; J2405; J3490

== ENCOUNTER → 2017-10-06 11:52 | Outpatient (CLI) | payer MEDICARE, MEDICAID, SELFPAY ==
[2017-10-06 12:18] LABS: Hematocrit 30.6 % (37-47); Mean Corp Hgb Conc 32.7 g/gl (32-36); Mean Corpuscular Hgb 29.5 pg (27.0-32.0); Mean Corpuscular Volume 90.3 fL (81-99); Mean Platelet Vol. 10.7 fl (6.2-12.0); Platelet Count 223 K/mm3 (150-450); RBC Distribution Width CV 13.7 % (11.6-14.6); Red Blood Count 3.39 M/mm3 (4.2-5.4); White Blood Count 7.4 K/mm3 (4.4-11.0)
[2017-10-06 12:29] LABS: Scan Indicated on CBC? Y/N NO
== END ==
PROVIDERS: Visit Provider Obstetrics & Gynecology
DX: D62 Acute posthemorrhagic anemia (principal)
CPT/HCPCS: 36415; 85027